=== PATIENT | female | born 1975 | race Caucasian/White ===

== ENCOUNTER 2022-08-02 19:52 | Observation (INO) ==
[2022-08-02 20:09] LABS: ABS Basophils 0.1 10^3/ul (0-0.2); ABS Eosinophils 0.1 10^3/ul (0-0.6); ABS Lymphocytes 3.6 10^3/ul (1.0-4.8); ABS Monocytes 0.6 10^3/ul (0-0.8); ABS Neutrophils 5.5 10^3/ul (1.5-7.7); Eosinophil % 0.7 %; Hematocrit 43 % (35-47); Hemoglobin 15.2 g/dL (12.0-16.0); Lymphocyte % 36.6 %; Mean Corpuscular HGB Conc 35 g/dL (31-36); Mean Corpuscular Hemoglobin 30 pg (27-31); Mean Corpuscular Volume 86 fL (80-97); Mean Platelet Volume 7.5 fL (7.4-10.4); Nucleated Red Blood Cells % 0.1; Platelet Count 299 10^3/uL (150-450); Red Blood Count 5.01 10^6 /uL (3.70-4.87); Red Cell Distribution Width 14 % (10-15); White Blood Count 9.9 10^3/uL (3.5-10.8)
[2022-08-02 20:14] LABS: INR 1.14 (0.88-1.18)
[2022-08-02 20:44] LABS: Albumin 4.9 g/dL (3.2-5.2); Albumin/Globulin Ratio 1.9 (1-3); Calcium 10.2 mg/dL (8.6-10.3); Globulin 2.6 g/dL (2-4); Potassium 3.9 mmol/L (3.5-5.0); Total Bilirubin 0.6 mg/dL (0.2-1.0); Total Protein 7.5 g/dL (6.4-8.9); eGFR CKD-EPI 79.4 (>60)
[2022-08-02 21:34] LABS: High Sensitivity Troponin 1 Hr 3 pg/mL (<15)
[2022-08-02] MEDS ORDERED: Senna TAB 8.6 mg TAB PO PRN (22:52)
[2022-08-02] MEDS ORDERED: Polyethylene Glycol 3350 17 GM PACKET PO PRN (22:52)
[2022-08-02] MEDS ORDERED: Nicotine GUM 4MG FRUIT FLAVOR PO PRN (22:54)
[2022-08-03] MEDS ORDERED: NS 0.9% 1000 ml BAG 1,000 ML IV SCH (06:00)
[2022-08-03 06:13] LABS: HDL Cholesterol 35.6 mg/dL
[2022-08-03] MEDS ORDERED: Nicotine PATCH 21 MG/24 HR PATCH TRANSDERM SCH (08:00)
[2022-08-03 13:37] VITALS: BP 132/71
== END 2022-08-03 13:57 | disposition home or self-care (01) ==
LOC: MEDTELE 19:52 → ED 19:52 → SUATTDRO 22:47 → MEDTELE 08-03 02:56
PROVIDERS: ADMIT Internal Medicine; ATTEND Hospitalist